=== PATIENT | female | born 2000 | race Caucasian/White ===

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

== ENCOUNTER 2022-04-18 15:49 | Emergency (ER) | payer MEDICAID ==
[2022-04-18] MEDS ORDERED: Sodium Chloride 0.9% 10 ML Syringe FLUSH PRN (16:04)
[2022-04-18] MEDS ORDERED: Morphine 4 MG/ML VIAL IVPUSH ONE (16:27)
[2022-04-18] MEDS ORDERED: Ondansetron 4 MG/2 ML SDV IVPUSH ONE (16:27)
[2022-04-18] MEDS ORDERED: Sodium Chloride 0.9% 1,000 ML IV SCH (16:30)
[2022-04-18] MEDS ORDERED: Iopamidol 755 MG/ML 125 ML Bottle IV ONE (16:57)
[2022-04-18] MEDS ORDERED: Alum Hydroxide/Mag Hydroxide 15 ML, Lidocaine 2% 15 ML PO ONE ×2 (17:31)
[2022-04-18 17:55] VITALS: BP 130/77; PULSE 77
== END 2022-04-18 17:52 | disposition home or self-care (01) ==
LOC: FB.ED 15:49
DX: K21.9 Gastro-esophageal reflux disease without esophagitis (principal); K80.50 Calculus of bile duct without cholangitis or cholecystitis without obstruction; F17.200 Nicotine dependence, unspecified, uncomplicated; E66.9 Obesity, unspecified; Z68.38 Body mass index [BMI] 38.0-38.9, adult; Z79.899 Other long term (current) drug therapy
CPT/HCPCS: 36415; 74177; 81001; 81025; 82150; 83690; 96361; 96374; 96375; 99284-25; A9270-GY; J2270; J2405; J3490; J7030; Q9967

== ENCOUNTER 2022-07-03 16:04 | Emergency (ER) | payer MEDICAID ==
[2022-07-03] MEDS ORDERED: Acetaminophen/HYDROcodone 325-5 MG Tab PO ONE (16:05)
[2022-07-03 16:44] VITALS: BP 120/78; PULSE 91
[2022-07-03 17:21] LABS: HEMOGLOBIN 15.7 g/dL (11.4-15.5); MEAN CORPUSCULAR HEMOGLOBIN 28.8 pg (23.9-33.9); MEAN CORPUSCULAR HGB CONC 33.8 g/dL (31.9-34.8); MEAN CORPUSCULAR VOLUME 85.3 fL (76.7-100.5); WHITE BLOOD CELL COUNT,WBC 15.9 x10-3/uL (3.0-10.3)
[2022-07-03 17:22] LABS: HEMATOCRIT 46.5 % (34.2-48.2); MEAN PLATELET VOLUME 8.1 fL (7.1-12.4); PLATELET COUNT,PLT 349 x10(3)uL (151-488); RED BLOOD CELL COUNT 5.45 x10(6)uL (3.60-5.20); RED CELL DISTRIBUTION WIDTH 13.4 % (12.3-16.5)
[2022-07-03] MEDS: Sodium Chloride 0.9% 10 ML Syringe FLUSH PRN (17:24)
[2022-07-03 17:25] LABS: BLOOD UREA NITROGEN,BUN 11 mg/dL (7-18); BUN/CREATININE RATIO 15.7 (9-20); CARBON DIOXIDE,CO2 23 mmol/L (21-32); CHLORIDE,CL 104 mmol/L (100-110); CREATININE 0.7 mg/dL (0.55-1.02); EST CRCL DRUG DOSING (CG) 123.63 mL/min; ESTIMATED GFR 126 mL/min (>60); GLUCOSE RANDOM 87 mg/dL (80-116); POTASSIUM,K 3.6 mmol/L (3.5-5.3); SODIUM,NA 139 mmol/L (135-145)
[2022-07-03] MEDS: Sodium Chloride 0.9% 500 ML IV ONE (17:27)
[2022-07-03 17:28] LABS: ALANINE AMINOTRANSFERASE,ALT 48 U/L (12-36); ALBUMIN 4.1 g/dL (3.5-5.2); ALKALINE PHOSPHATASE 73 IU/L (56-112); ASPARTATE AMNIOTRANSFERASE,AST 25 IU/L (5-25); BILIRUBIN TOTAL 0.3 mg/dL (0.1-1.3); PROTEIN TOTAL,TP 8.1 g/dL (6.0-8.0)
[2022-07-03] MEDS: Ondansetron 4 MG/2 ML SDV IVPUSH ONE (17:31)
[2022-07-03 17:33] LABS: EOSINOPHILS PERCENT MAN 2 % (0-5); LYMPHOCYTES PERCENT MAN 24 % (13-37); MONOCYTES PERCENT MAN 7 % (4-12); SEG NEUTROPHILS PERCENT MAN 67 % (46-82)
[2022-07-03] MEDS: Ketorolac 30 MG/ML SDV IVPUSH ONE (17:33)
[2022-07-03] MEDS: HYDROmorphone 2 MG/ML SDV IVPUSH ONE (17:54)
== END 2022-07-03 16:52 | disposition home or self-care (01) ==
LOC: FB.ED 16:04
DX: F41.9 Anxiety disorder, unspecified (principal); T50.905A Adverse effect of unspecified drugs, medicaments and biological substances, initial encounter; E66.9 Obesity, unspecified; Z68.37 Body mass index [BMI] 37.0-37.9, adult; Z72.0 Tobacco use; Z88.5 Allergy status to narcotic agent
CPT/HCPCS: 36415; 71045; 80053; 81025; 83735; 84484; 85025; 85379; 96374; 96375; 99285; A9270; J1170; J1885; J2405; J3490; J7040; 93005